=== PATIENT | male | born 1975 | race Caucasian/White ===

== ENCOUNTER 2017-05-04 00:07 | Emergency (ER) | payer OTHER ==
--- NOTE | 2017-05-04 00:23 | PDOC ---
History of Present Illness - General History Source: Patient Exam Limitations: No Limitations - History of Present Illness Initial Comments: 05/04/17 01:14 The patient is a 42 year old male, with no significant past medical history, who presents today complaining of a red, irritated right eye. 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 He states that he has decreased blurred vision in his injured eye. The eye is painful, red, and constantly tearing. He feels like something is stuck in his eye when he blinks. Denies any other injuries. Denies fever, chills, nausea, vomiting. Allergies: none reported. <Marychuy Wilson - Last Filed: 05/04/17 01:12> <Maria Luisa Kumari - Last Filed: 05/05/17 11:33> - General Stated Complaint: EYE INJURY Time Seen by Provider: 05/04/17 00:23 Past History <Marychuy Wilson - Last Filed: 05/04/17 01:12> - Psycho/Social/Smoking Cessation Hx Anxiety: No Suicidal Ideation: No Smoking History: Never smoked Have you smoked in the past 12 months: No Hx Alcohol Use: No Drug/Substance Use Hx: No Substance Use Type: None <Maria Luisa Kumari - Last Filed: 05/05/17 11:33> - Past Medical History Allergies/Adverse Reactions: Allergies Allergy/AdvReac Type Severity Reaction Status Date / Time No Known Allergies Allergy Verified 05/04/17 01:06 Home Medications: Ambulatory Orders Ofloxacin 0.3% Ophth Soln [Ocuflox -] 1 drop OD Q1H #10 ml 05/04/17 Review of Systems - Review of Systems Able to Perform ROS?: Yes Comments:: 05/04/17 01:14 GENERAL/CONSTITUTIONAL: No fever or chills. No weakness. HEAD, EYES, EARS, NOSE AND THROAT: +injury to the right eye with redness and irritation. +blurred vision in the right eye. No ear pain or discharge. No sore throat. CARDIOVASCULAR: No chest pain or shortness of breath. RESPIRATORY: No cough, wheezing, or hemoptysis. GASTROINTESTINAL: No nausea, vomiting, diarrhea or constipation. GENITOURINARY: No dysuria, frequency, or change in urination. MUSCULOSKELETAL: No joint or muscle swelling or pain. No neck or back pain. SKIN: No rash NEUROLOGIC: No headache, vertigo, loss of consciousness, or change in strength/ sensation. ENDOCRINE: No increased thirst. No abnormal weight change. HEMATOLOGIC/LYMPHATIC: No anemia, easy bleeding, or history of blood clots. ALLERGIC/IMMUNOLOGIC: No hives or skin allergy. <Marychuy Wilson - Last Filed: 05/04/17 01:12> *Physical Exam - Vital Signs Last Vital Signs Temp Pulse Resp BP Pulse Ox 98.4 F 82 16 117/80 97 05/04/17 00:56 05/04/17 00:56 05/04/17 00:56 05/04/17 00:56 05/04/17 00:56 - Physical Exam Comments: 05/04/17 01:14 GENERAL: Awake, alert, and fully oriented. Mildly uncomfortable. HEAD: No signs of trauma EYES: +Injected conjunctiva bilaterally. EOMI, PERRLA. The right eye had small amount of yellowish discharge. Visual acuity in the right eye was 20/200. Visual acuity of the left eye was 20/25. Fluorescein examination: large area of fluorescein uptake in the upper outer corner of his cornea, encompassing approximately 1/4th of his cornea. NEUROLOGICAL: Cranial nerves II through XII grossly intact. Normal speech, normal gait SKIN: Warm, Dry, normal turgor, no rashes or lesions noted. <Marychuy Wilson - Last Filed: 05/04/17 01:12> ED Treatment Course - Medications Given in the ED: ED Medications Discontinued Medications Generic Name Dose Route Start Last Admin Trade Name Freq PRN Reason Stop Dose Admin Fluorescein Sodium 2 ea 05/04/17 00:39 05/04/17 00:48 Fluorets - OD 05/04/17 00:40 2 ea ONCE ONE Administration <Marychuy Wilson - Last Filed: 05/04/17 01:12> Medical Decision Making - Medical Decision Making 05/04/17 01:15 Dr. Kumari spoke with Dr. Jules, who was covering for Dr. Reba Fu, regarding the patient's care. <Marychuy Wilson - Last Filed: 05/04/17 01:12> - Medical Decision Making 05/05/17 11:29 Pt presents to the ED complaining of the acute onset of R eye pain while hammering roof shingles with no eye protection. Now complaining of bilateral eye pain, consensual photophobia and decreased visual acuity. Visual acuity 20/ 200 in the R eye , 20/25 in the L eye. On fluorescien exam large area of uptake covering entire upper outer quadrant of the R eye. Case discussed with dredge engineer cotton machine operator, Dr. Jules, who will call the patient at home to arrange appt for tomorrow. Given olfaxacin drops to use q [address] Jules. Patient instructed that he must obtain follow up tomorrow, and he is to return to the ED if unable to get follow up through Dr. Jules. <Maria Luisa Kumari - Last Filed: 05/05/17 11:33> *DC/Admit/Observation/Transfer - Attestations Scribe Attestion: 05/04/17 01:16 Documentation prepared by CAITLYN Diaz, acting as medical assistant instructor for Maria Luisa Kumari MD. <Marychuy Wilson - Last Filed: 05/04/17 01:12> - Discharge Dispostion Admit: No <Maria Luisa Kumari - Last Filed: 05/05/17 11:33> Diagnosis at time of Disposition: Corneal ulcer of right eye - Discharge Dispostion Disposition: HOME Condition at time of disposition: Good - Prescriptions Prescriptions: Ofloxacin 0.3% Ophth Soln [Ocuflox -] 1 drop OD Q1H #10 ml - Referrals Referrals: Jim Jules [Non Staff, Medical] - - Patient Instructions Printed Discharge Instructions: DI for Corneal Abrasion Additional Instructions: you have a problem with the cornea, the outermost covering of your eye. You must follow up with Dr. Jules, the dredge engineer tomorrow. He will call you to set up an appointment. If you are unable to follow up with him for some reason, you must return to the ED. return immediately for severe pain, worsening vision, fever.
[2017-05-04] MEDS ORDERED: FLUORESCEIN NA 1 EA STRIP OD ONE (00:39)
[2017-05-04] MEDS ORDERED: FLUORESCEIN NA 1 EA STRIP ONE ×2 (00:43→00:47)
[2017-05-04 01:05] VITALS: BP 117/80; PULSE 82; TEMP 98.4; BMI 26.6
== END 2017-05-04 02:06 | disposition home or self-care (01) ==
LOC: JER 00:07
PROC: 4A07X0Z Measurement of Visual Acuity, External Approach (ICD-10-PCS; principal; 2017-05-04)
DX: H16.001 Unspecified corneal ulcer, right eye (principal); W31.89XA Contact with other specified machinery, initial encounter; Y93.H3 Activity, building and construction; Y92.89 Other specified places as the place of occurrence of the external cause; Y99.0 Civilian activity done for income or pay
CPT/HCPCS: 99173; 99283-25

== ENCOUNTER 2018-01-04 10:04 | Emergency (ER) | payer OTHER ==
[2018-01-04 10:24] VITALS: BP 127/80; PULSE 84; TEMP 98.3; BMI 27.4
--- NOTE | 2018-01-04 10:56 | PDOC ---
History of Present Illness - General Chief Complaint: Pain Stated Complaint: NASAL PAIN AND SWELLING Time Seen by Provider: 01/04/18 10:47 History Source: Patient Exam Limitations: No Limitations - History of Present Illness Initial Comments: 01/04/18 11:52 Patient is a 42-year-old male, no significant medical history currently on no medication presents with painful lump in right nares. No fever. Past Medical History: [Denies]. Allergies: No known allergies Medications: [None] Family History: Non-contributory Social History: Denies smoking, alcohol use, or IVDU Review of Systems GENERAL/CONSTITUTIONAL: [No fever or chills. No weakness. No weight change.] HEAD, EYES, EARS, NOSE AND THROAT: [No change in vision. No ear pain or discharge. No sore throat. Painful lump to the right nares. ] CARDIOVASCULAR: [No chest pain or shortness of breath.] RESPIRATORY: [No cough, wheezing, or hemoptysis.] GASTROINTESTINAL: [No nausea, vomiting, diarrhea or constipation. No rectal bleeding.] GENITOURINARY: [No dysuria, frequency, or change in urination.] MUSCULOSKELETAL: [No joint or muscle swelling or pain. No neck or back pain.] SKIN AND BREASTS: [No rash or easy bruising.] NEUROLOGIC: [No headache, vertigo, loss of consciousness, or loss of sensation.] PSYCHIATRIC: [No depression or anxiety.] ENDOCRINE: [No increased thirst. No abnormal weight change.] HEMATOLOGIC/LYMPHATIC: [No anemia, easy bleeding, or history of blood clots.] ALLERGIC/IMMUNOLOGIC: [No hives or skin allergy. No latex allergy.] Physical Exam: GENERAL: [The patient is awake, alert, and fully oriented, in no acute distress. ] HEAD: [Normal with no signs of trauma.] EYES: [Pupils equal, round and reactive to light, extraocular movements intact, sclera anicteric, conjunctiva clear.] ENT: [Ears normal, visible raised area to right nares, no drainage, swelling lateral to right nose upper cheek. No erythema or warmth. Oropharynx clear without exudates. Moist mucous membranes. No uvula deviation] NECK: [Normal range of motion, supple without lymphadenopathy, JVD, or masses.] LUNGS: [Breath sounds equal, clear to auscultation bilaterally. No wheezes, and no crackles.] HEART: [Regular rate and rhythm, normal S1 and S2 without murmur, rub or gallop. ] ABDOMEN: [Soft, nontender, normoactive bowel sounds. No guarding, no rebound. No masses. No bruising or abrasions] RECTAL : [Guaiac negative, normal rectal tone.] MUSCULOSKELETAL: [Normal range of motion, no edema. No clubbing or cyanosis. No cords, erythema, or tenderness. No CVA Tenderness with fist.] NEUROLOGICAL: [Cranial nerves II through XII grossly intact. Normal speech, normal gait.] PSYCH: [Normal mood, normal affect.] SKIN: [Warm, Dry, normal turgor, no rashes or lesions noted.] Past History - Past Medical History Allergies/Adverse Reactions: Allergies Allergy/AdvReac Type Severity Reaction Status Date / Time No Known Allergies Allergy Verified 01/04/18 10:12 Home Medications: Ambulatory Orders Amox-Tr/K Cl [Augmentin - 875Mg Tablet] 1 tab PO BID #14 tablet 01/04/18 Ibuprofen [Motrin -] 600 mg PO QID 01/04/18 Ibuprofen [Motrin -] 600 mg PO TID #21 tablet 01/04/18 Mupirocin Cream [Bactroban 2% Cream -] 1 applic TP BID #1 tube 01/04/18 COPD: No - Immunization History Immunization Up to Date: Yes - Suicide/Smoking/Psychosocial Hx Smoking History: Never smoked Have you smoked in the past 12 months: No Hx Alcohol Use: No Drug/Substance Use Hx: No Substance Use Type: None *Physical Exam - Vital Signs Last Vital Signs Temp Pulse Resp BP Pulse Ox 98.3 F 84 18 127/80 100 01/04/18 10:12 01/04/18 10:12 01/04/18 10:12 01/04/18 10:12 01/04/18 10:12 Medical Decision Making - Medical Decision Making 01/04/18 11:58 A/P: Patient with visible painful mass to right nares, consistent with abscess with no visible drainage. Because of swelling lateral to nose were performed CT of facial bones to assess extent of abscess. CT demonstrates moderate soft tissue swelling over the right side of the nose without gross evidence of a collection or abscess there is a chronic sinusitis with a 1.9 cm retention cyst versus polyp in the right maxillary antrum inferiorly. I will discharge patient home on Augmentin, with Bactroban cream internal right nares. I discussed the physical exam findings, ancillary test results and final diagnoses with the patient. I answered all of the patient's questions. The patient was satisfied with the care received and felt comfortable with the discharge plan and treatment plan. The patient will call to arrange follow-up and will return to the Emergency Department with any new, persistent or worsening symptoms. *DC/Admit/Observation/Transfer Diagnosis at time of Disposition: Nasal abscess - Discharge Dispostion Disposition: HOME Condition at time of disposition: Stable Admit: No - Prescriptions Prescriptions: Amox-Tr/K Cl [Augmentin - 875Mg Tablet] 1 tab PO BID #14 tablet Ibuprofen [Motrin -] 600 mg PO TID #21 tablet Mupirocin Cream [Bactroban 2% Cream -] 1 applic TP BID #1 tube - Referrals Referrals: Stefano Puente MD [Staff Physician] - - Patient Instructions Additional Instructions: Please apply Bactroban cream to right nares with a Q-tip onto lesion in the nose. Recommend follow-up with Dr. Puente for anyone in the ear nose and throat practice on Friday or Friday Antibiotics as ordered Motrin for pain Increased redness or swelling to face, fever, or any other concerns may return to ER - Post Discharge Activity Forms/Work/School Notes: Back to Work
== END 2018-01-04 12:13 | disposition home or self-care (01) ==
LOC: JERFT 10:04
DX: J34.0 Abscess, furuncle and carbuncle of nose (principal)
CPT/HCPCS: 70486-TC; 99281-25